=== PATIENT | male | born 1980 | race Caucasian/White ===

== ENCOUNTER 2022-11-01 11:02 | Emergency (ER) | payer BC ==
[~2022-11-01] VITALS: Ht 177.8 cm; Wt 83.1 kg
[2022-11-01] MEDS ORDERED: XIFA550T PO (11:14)
[2022-11-01] MEDS ORDERED: FURO20TA2 PO (11:14)
[2022-11-01] MEDS ORDERED: SPIR50TA4 PO (11:14)
[2022-11-01] MEDS ORDERED: NS 1,000 ML IV ONE (11:35)
[2022-11-01 11:53] LABS: BASO # 0.1 10^3/uL (0.0-0.2); BASO % 0.8 % (0.0-1.0); EOS # 0.1 10^3/uL (0.0-0.5); EOS % 0.8 % (0.0-3.0); HEMATOCRIT 44.4 % (42.0-52.0); HEMOGLOBIN 14.9 g/dl (13.5-17.5); LYMPH # 2.1 10^3/uL (1.5-5.0); LYMPH % 22.8 % (24.0-44.0); MEAN CORPUSCULAR HEMOGLOBIN 31.2 pg (27.0-33.0); MEAN CORPUSCULAR HGB CONC 33.6 g/dl (32.0-36.5); MEAN CORPUSCULAR VOLUME 92.9 fl (80.0-96.0); MONO # 0.9 10^3/uL (0.0-0.8); MONO % 10.2 % (2.0-8.0); NEUTROPHILS # 5.8 10^3/uL (1.5-8.5); NEUTROPHILS % 64.6 % (36.0-66.0); PLATELET COUNT, AUTOMATED 237 10^3/uL (150-450); RED BLOOD COUNT 4.78 10^6/uL (4.30-6.10)
[2022-11-01] MEDS ORDERED: ISOVUE-370 76% 100ML VIAL As Ordered ONE (12:10)
[2022-11-01] MEDS ORDERED: cefTRIAXone SOD 2 GM in D5W MINI-BAG PLUS 50 ML IV ONE (13:25)
[2022-11-01] MEDS ORDERED: DOXY-444 PO (14:26)
[2022-11-01] MEDS ORDERED: AMOX875T2 PO (14:26)
[2022-11-01 14:39] VITALS: BP 121/77
== END 2022-11-01 14:41 | disposition home or self-care (01) ==
LOC: M ED 11:02
DX: L03.315 Cellulitis of perineum (principal); L02.215 Cutaneous abscess of perineum; N32.89 Other specified disorders of bladder
CPT/HCPCS: 72193; 80047; 81001; 85025; 96361; 96365; 99284; J0696; Q9967